=== PATIENT | male | born 1940 | race Caucasian/White ===

== ENCOUNTER → 2019-11-29 16:36 | Outpatient (CLI) | payer MEDICARE ==
[2019-11-29 16:59] LABS: INR 3.25 (0.85-1.17); PROTIME 32.6 SECONDS (11.6-15.0)
== END | disposition home or self-care (01) ==
LOC: D.LABREF 16:36
PROVIDERS: ATTEND Emergency Medicine
DX: I35.0 Nonrheumatic aortic (valve) stenosis (principal)